=== PATIENT | male | born 2000 | race Caucasian/White ===

== ENCOUNTER 2022-03-10 05:18 | Emergency (ER) | payer SELFPAY ==
[2022-03-10] MEDS ORDERED: Cephalexin 500 MG Cap PO ONE (05:38)
[2022-03-10] MEDS ORDERED: Lidocaine 1% with EPINEPHrine 1:100,000 10 ML MDV INJECT ONE (05:50)
[2022-03-10] MEDS ORDERED: Lidocaine 1% 5 ML VIAL ONE (05:53)
[2022-03-10] MEDS ORDERED: Lidocaine 1% 5 ML VIAL INJECT ONE (05:54)
== END 2022-03-10 06:18 ==
LOC: MW.ED 05:18
DX: S01.511A Laceration without foreign body of lip, initial encounter (principal); F10.129 Alcohol abuse with intoxication, unspecified; W26.8XXA Contact with other sharp object(s), not elsewhere classified, initial encounter
CPT/HCPCS: 12013; 99282; A9270

== ENCOUNTER 2024-09-18 20:32 | Emergency (ER) | payer SELFPAY | END 2024-09-18 23:00 | disposition left against medical advice (07) | LOC: MW.ED 20:32 | DX: Z53.21 Procedure and treatment not carried out due to patient leaving prior to being seen by health care provider (principal) ==